=== PATIENT | female | born 1940 | race Caucasian/White ===

== ENCOUNTER 2021-05-25 17:31 | Inpatient (IN) ==
[2021-05-25] MEDS ORDERED: Furosemide 20 MG TABLET PO PRN (17:37)
[2021-05-26 06:06] LABS: Basophils % 0.5 %; Eosinophils # 0.1 K/mcL (0.0-0.6); Eosinophils % 1.6 %; Hematocrit 42.2 % (35.3-44.9); Hemoglobin 13.3 g/dL (11.5-15.4); Immature Granulocytes % 0.4 % (0-4); Lymphocytes # 2.2 K/mcL (0.6-4.6); Lymphocytes % 26.9 %; Mean Corpuscular HGB Conc 31.5 g/dL (31.6-35.5); Mean Corpuscular Hemoglobin 31.6 pg (28.0-33.3); Mean Corpuscular Volume 100.2 fL (83.0-100.0); Mean Platelet Volume 13.5 fL (9.4-12.4); Monocytes # 0.9 K/mcL (0.0-1.3); Monocytes % 11.1 %; Neutrophils # 4.8 K/mcL (1.6-8.9); Platelet Count 174 K/mcL (140-400); Red Blood Count 4.21 M/mcL (3.82-4.97); Red Cell Distribution Width 13.8 % (11.5-14.5); Segmented Neutrophils % 59.5 %
[2021-05-26 06:35] LABS: Calcium 9.2 mg/dL (8.6-10.3); Potassium 3.3 mEq/L (3.5-5.1)
[2021-05-26 07:11] LABS: Platelet Estimate Normal (Normal)
[2021-05-26] MEDS ORDERED: Potassium Chloride Elixir 20 MEQ/15 ML UDC PO ONE (08:45)
[2021-05-26] MEDS: Aspirin 81 MG TAB.CHEW PO SCH ×2 (09:11→09:25)
[2021-05-26] MEDS: Cyanocobalamin (B-12) 1,000 MCG TABLET PO SCH ×2 (09:11→09:26)
[2021-05-26] MEDS: Ascorbic Acid 500 MG TABLET PO SCH ×2 (09:11→09:26)
[2021-05-26] MEDS: amLODIPine 5 MG TABLET PO SCH ×2 (09:11→09:26)
[2021-05-26] MEDS: *HR* Heparin 5,000 UNIT/ML VIAL SQ SCH (17:35)
[2021-05-27] MEDS: *HR* Heparin 5,000 UNIT/ML VIAL SQ SCH ×2 (05:15→18:38)
[2021-05-27] MEDS: Aspirin 81 MG TAB.CHEW PO SCH (10:38)
[2021-05-27] MEDS: amLODIPine 5 MG TABLET PO SCH (10:38)
[2021-05-27] MEDS: Cyanocobalamin (B-12) 1,000 MCG TABLET PO SCH (10:39)
[2021-05-27] MEDS: Ascorbic Acid 500 MG TABLET PO SCH (10:39)
[2021-05-27] MEDS ORDERED: *HR* Metoprolol 5 MG/5 ML VIAL IVP ONE (11:28)
[2021-05-27] MEDS ORDERED: D5% in Lactated Ringers 1,000 ML IVC SCH (11:45)
[2021-05-27 11:53] LABS: Basophils # 0.1 K/mcL (0.0-0.2); Basophils % 0.9 %; Eosinophils # 0.1 K/mcL (0.0-0.6); Hematocrit 45.5 % (35.3-44.9); Immature Granulocytes % 0.5 % (0-4); Lymphocytes # 2.1 K/mcL (0.6-4.6); Lymphocytes % 25.7 %; Mean Corpuscular HGB Conc 30.8 g/dL (31.6-35.5); Mean Corpuscular Hemoglobin 30.7 pg (28.0-33.3); Mean Corpuscular Volume 99.8 fL (83.0-100.0); Mean Platelet Volume 13.1 fL (9.4-12.4); Monocytes # 0.9 K/mcL (0.0-1.3); Monocytes % 11.3 %; Neutrophils # 4.9 K/mcL (1.6-8.9); Platelet Count 181 K/mcL (140-400); Red Blood Count 4.56 M/mcL (3.82-4.97); Red Cell Distribution Width 13.9 % (11.5-14.5); Segmented Neutrophils % 60.6 %; White Blood Count 8.1 K/mcL (4.3-11.1)
[2021-05-27] MEDS ORDERED: D5% in 0.45% NACL 1,000 ML IVC SCH (12:00)
[2021-05-27 12:07] LABS: Calcium 9.7 mg/dL (8.6-10.3); Magnesium 1.9 mg/dL (1.6-2.6); Potassium 3.4 mEq/L (3.5-5.1)
[2021-05-27] MEDS ORDERED: 0.9 % Sodium Chloride 250 ML IV ONE (12:16)
[2021-05-28] MEDS: *HR* Heparin 5,000 UNIT/ML VIAL SQ SCH ×2 (05:45→17:23)
[2021-05-28] MEDS: Aspirin 81 MG TAB.CHEW PO SCH (10:33)
[2021-05-28] MEDS: amLODIPine 5 MG TABLET PO SCH (10:33)
[2021-05-28] MEDS: Ascorbic Acid 500 MG TABLET PO SCH (10:34)
[2021-05-28] MEDS: Cyanocobalamin (B-12) 1,000 MCG TABLET PO SCH (10:34)
[2021-05-28] MEDS ORDERED: Magnesium Oxide 400 MG TABLET PO ONE (12:09)
[2021-05-29] MEDS: *HR* Heparin 5,000 UNIT/ML VIAL SQ SCH ×2 (06:44→17:31)
[2021-05-29] MEDS: Ascorbic Acid 500 MG TABLET PO SCH (08:32)
[2021-05-29] MEDS: amLODIPine 5 MG TABLET PO SCH (08:34)
[2021-05-29] MEDS: Megestrol Acetate 400 MG/10 ML UDC PO SCH (08:35)
[2021-05-29] MEDS: Aspirin 81 MG TAB.CHEW PO SCH (08:35)
[2021-05-29] MEDS: Cyanocobalamin (B-12) 1,000 MCG TABLET PO SCH (08:35)
[2021-05-30] MEDS: *HR* Heparin 5,000 UNIT/ML VIAL SQ SCH (05:34)
[2021-05-30] MEDS: Megestrol Acetate 400 MG/10 ML UDC PO SCH (08:34)
[2021-05-30] MEDS: Ascorbic Acid 500 MG TABLET PO SCH (08:34)
[2021-05-30] MEDS: Aspirin 81 MG TAB.CHEW PO SCH (08:34)
[2021-05-30] MEDS: Cyanocobalamin (B-12) 1,000 MCG TABLET PO SCH (08:35)
[2021-05-30] MEDS: amLODIPine 5 MG TABLET PO SCH (08:36)
[2021-05-31 09:30] LABS: Hematocrit 42.2 % (35.3-44.9); Hemoglobin 13.1 g/dL (11.5-15.4); Mean Corpuscular Hemoglobin 31.1 pg (28.0-33.3); Mean Corpuscular Volume 100.2 fL (83.0-100.0); Mean Platelet Volume 14.6 fL (9.4-12.4); Platelet Count 159 K/mcL (140-400); Red Blood Count 4.21 M/mcL (3.82-4.97); Red Cell Distribution Width 14.2 % (11.5-14.5); White Blood Count 9.8 K/mcL (4.3-11.1)
[2021-05-31] MEDS: Megestrol Acetate 400 MG/10 ML UDC PO SCH (09:35)
[2021-05-31] MEDS: Ascorbic Acid 500 MG TABLET PO SCH (09:36)
[2021-05-31] MEDS: Aspirin 81 MG TAB.CHEW PO SCH (09:36)
[2021-05-31] MEDS: Cyanocobalamin (B-12) 1,000 MCG TABLET PO SCH (09:36)
[2021-05-31 09:38] LABS: Calcium 9.5 mg/dL (8.6-10.3); Magnesium 1.8 mg/dL (1.6-2.6); Potassium 4.2 mEq/L (3.5-5.1)
[2021-06-01] MEDS: Megestrol Acetate 400 MG/10 ML UDC PO SCH (10:09)
[2021-06-01] MEDS: Aspirin 81 MG TAB.CHEW PO SCH (10:09)
[2021-06-01] MEDS: Ascorbic Acid 500 MG TABLET PO SCH (10:10)
[2021-06-01] MEDS: Cyanocobalamin (B-12) 1,000 MCG TABLET PO SCH (10:10)
[2021-06-02 07:21] LABS: Hematocrit 40.6 % (35.3-44.9); Hemoglobin 12.5 g/dL (11.5-15.4); Mean Corpuscular HGB Conc 30.8 g/dL (31.6-35.5); Mean Corpuscular Hemoglobin 31.2 pg (28.0-33.3); Mean Corpuscular Volume 101.2 fL (83.0-100.0); Mean Platelet Volume 14.7 fL (9.4-12.4); Platelet Count 151 K/mcL (140-400); Red Blood Count 4.01 M/mcL (3.82-4.97); Red Cell Distribution Width 14.3 % (11.5-14.5); White Blood Count 9.1 K/mcL (4.3-11.1)
[2021-06-02 07:42] LABS: Calcium 9.9 mg/dL (8.6-10.3); Potassium 4.9 mEq/L (3.5-5.1)
[2021-06-02] MEDS: Aspirin 81 MG TAB.CHEW PO SCH (10:06)
[2021-06-02] MEDS: Megestrol Acetate 400 MG/10 ML UDC PO SCH (10:07)
[2021-06-02] MEDS: Cyanocobalamin (B-12) 1,000 MCG TABLET PO SCH (10:09)
[2021-06-02] MEDS: Ascorbic Acid 500 MG TABLET PO SCH (10:09)
[2021-06-03] MEDS: Megestrol Acetate 400 MG/10 ML UDC PO SCH (09:12)
[2021-06-03] MEDS: Aspirin 81 MG TAB.CHEW PO SCH (09:13)
[2021-06-03] MEDS: Ascorbic Acid 500 MG TABLET PO SCH (09:13)
[2021-06-03] MEDS: Cyanocobalamin (B-12) 1,000 MCG TABLET PO SCH (09:20)
[2021-06-04 07:50] LABS: Hemoglobin 11.9 g/dL (11.5-15.4); Mean Corpuscular HGB Conc 30.5 g/dL (31.6-35.5); Mean Corpuscular Hemoglobin 31.1 pg (28.0-33.3); Mean Corpuscular Volume 101.8 fL (83.0-100.0); Platelet Count 168 K/mcL (140-400); Red Blood Count 3.83 M/mcL (3.82-4.97); Red Cell Distribution Width 14.4 % (11.5-14.5); White Blood Count 8.6 K/mcL (4.3-11.1)
[2021-06-04 07:58] LABS: Calcium 9.3 mg/dL (8.6-10.3); Potassium 4.7 mEq/L (3.5-5.1)
[2021-06-04] MEDS: Ascorbic Acid 500 MG TABLET PO SCH (08:53)
[2021-06-04] MEDS: Aspirin 81 MG TAB.CHEW PO SCH (08:53)
[2021-06-04] MEDS: Megestrol Acetate 400 MG/10 ML UDC PO SCH (08:53)
[2021-06-04] MEDS: Cyanocobalamin (B-12) 1,000 MCG TABLET PO SCH (08:53)
[2021-06-05] MEDS: Cyanocobalamin (B-12) 1,000 MCG TABLET PO SCH (09:38)
[2021-06-05] MEDS: Megestrol Acetate 400 MG/10 ML UDC PO SCH (09:38)
[2021-06-05] MEDS: Ascorbic Acid 500 MG TABLET PO SCH (09:39)
[2021-06-05] MEDS: Aspirin 81 MG TAB.CHEW PO SCH (09:40)
[2021-06-06] MEDS: Aspirin 81 MG TAB.CHEW PO SCH (10:30)
[2021-06-06] MEDS: Cyanocobalamin (B-12) 1,000 MCG TABLET PO SCH (10:33)
[2021-06-06] MEDS: Megestrol Acetate 400 MG/10 ML UDC PO SCH (10:49)
[2021-06-06] MEDS: Ascorbic Acid 500 MG TABLET PO SCH (10:50)
[2021-06-07 06:37] LABS: Hematocrit 35.5 % (35.3-44.9); Hemoglobin 11.2 g/dL (11.5-15.4); Mean Corpuscular HGB Conc 31.5 g/dL (31.6-35.5); Mean Corpuscular Hemoglobin 31.2 pg (28.0-33.3); Mean Corpuscular Volume 98.9 fL (83.0-100.0); Mean Platelet Volume 13.2 fL (9.4-12.4); Platelet Count 169 K/mcL (140-400); Red Blood Count 3.59 M/mcL (3.82-4.97); Red Cell Distribution Width 14.1 % (11.5-14.5); White Blood Count 7.8 K/mcL (4.3-11.1)
[2021-06-07 06:58] LABS: Calcium 8.8 mg/dL (8.6-10.3); Potassium 4.2 mEq/L (3.5-5.1)
[2021-06-07] MEDS: Aspirin 81 MG TAB.CHEW PO SCH (09:52)
[2021-06-07] MEDS: Ascorbic Acid 500 MG TABLET PO SCH (09:52)
[2021-06-07] MEDS: Cyanocobalamin (B-12) 1,000 MCG TABLET PO SCH (09:55)
[2021-06-07] MEDS: Megestrol Acetate 400 MG/10 ML UDC PO SCH (10:08)
[2021-06-08] MEDS: Megestrol Acetate 400 MG/10 ML UDC PO SCH (09:12)
[2021-06-08] MEDS: Ascorbic Acid 500 MG TABLET PO SCH (09:12)
[2021-06-08] MEDS: Aspirin 81 MG TAB.CHEW PO SCH (09:12)
[2021-06-08] MEDS: Cyanocobalamin (B-12) 1,000 MCG TABLET PO SCH (09:13)
[2021-06-09] MEDS: Aspirin 81 MG TAB.CHEW PO SCH (08:22)
[2021-06-09] MEDS: Ascorbic Acid 500 MG TABLET PO SCH (08:22)
[2021-06-09] MEDS: Megestrol Acetate 400 MG/10 ML UDC PO SCH ×2 (08:22→11:21)
[2021-06-09] MEDS: Cyanocobalamin (B-12) 1,000 MCG TABLET PO SCH (08:23)
[2021-06-10] MEDS: Cyanocobalamin (B-12) 1,000 MCG TABLET PO SCH (09:40)
[2021-06-10] MEDS: Ascorbic Acid 500 MG TABLET PO SCH (09:40)
[2021-06-10] MEDS: Aspirin 81 MG TAB.CHEW PO SCH (09:40)
[2021-06-10] MEDS: Megestrol Acetate 400 MG/10 ML UDC PO SCH (09:40)
[2021-06-11] MEDS: Cyanocobalamin (B-12) 1,000 MCG TABLET PO SCH (09:32)
[2021-06-11] MEDS: Aspirin 81 MG TAB.CHEW PO SCH (09:32)
[2021-06-11] MEDS: Megestrol Acetate 400 MG/10 ML UDC PO SCH (09:32)
[2021-06-11] MEDS: Ascorbic Acid 500 MG TABLET PO SCH (09:32)
[2021-06-11] MEDS ORDERED: Acetaminophen 325 MG TABLET PO ONE (09:39)
[2021-06-12] MEDS: Ascorbic Acid 500 MG TABLET PO SCH ×2 (08:32→09:56)
[2021-06-12] MEDS: Aspirin 81 MG TAB.CHEW PO SCH ×2 (08:32→09:06)
[2021-06-12] MEDS: Cyanocobalamin (B-12) 1,000 MCG TABLET PO SCH ×2 (08:32→09:55)
[2021-06-12] MEDS: Megestrol Acetate 400 MG/10 ML UDC PO SCH (08:33)
[2021-06-13] MEDS: Aspirin 81 MG TAB.CHEW PO SCH (09:08)
[2021-06-13] MEDS: Megestrol Acetate 400 MG/10 ML UDC PO SCH (09:10)
[2021-06-13] MEDS: Cyanocobalamin (B-12) 1,000 MCG TABLET PO SCH (09:11)
[2021-06-13] MEDS: Ascorbic Acid 500 MG TABLET PO SCH (09:11)
[2021-06-14 08:52] VITALS: BP 125/65; PULSE 79; RESP 14; TEMP 98.4; O2SAT 96
[2021-06-14] MEDS: Megestrol Acetate 400 MG/10 ML UDC PO SCH (09:36)
[2021-06-14] MEDS: Ascorbic Acid 500 MG TABLET PO SCH (09:36)
[2021-06-14] MEDS: Aspirin 81 MG TAB.CHEW PO SCH (09:36)
[2021-06-14] MEDS: Cyanocobalamin (B-12) 1,000 MCG TABLET PO SCH (09:36)
== END 2021-06-14 15:52 | disposition home health service (06) | DRG 281 ==
LOC: INPPIK 22:12
PROVIDERS: ADMIT Internal Medicine; ATTEND Internal Medicine